=== PATIENT | female | born 1995 | race Two or more races ===

== ENCOUNTER 2022-05-09 14:28 | Emergency (ER) | payer MEDICAID, SELFPAY ==
[2022-05-09 15:10] VITALS: PULSE 70; RESP 18; TEMP 36.6; O2SAT 100; BMI 44.8
--- NOTE | 2022-05-09 15:12 | ED_ITS ---
HPI - General Adult General Chief complaint: Abdominal Pain <APRIL Li - Last Filed: 05/09/22 19:44> Stated complaint: discolor in eyes <APRIL Li Last Filed: 05/09/22 19:44> Time Seen by Provider: 05/09/22 16:15 <APRIL Li - Last Filed: 05/09/22 19:44> Source: patient <Matildades Marshall JUAN DANIEL Renae - Last Filed: 05/09/22 16:50> Mode of arrival: ambulatory <Matilda Renae CNP - Last Filed: 05/09/22 16:50> Limitations: no limitations <Matilda Renae CNP - Last Filed: 05/09/22 16:50> History of Present Illness HPI narrative: Patient is a 26-year-old female who presents emergency department for evaluation. She states that 2 days ago she had nausea vomiting and abdominal pain. The nausea and vomiting subsided after that day. Earlier today she had some epigastric pain but this has since resolved. One day ago when she awoke, after nausea and vomiting, she noticed blood to the whites of both eyes. Her family felt as though her eyes appear yellow and they were concerned as her grandmother has liver disease. Therefore she presented to emergency department today for evaluation. denies fevers, chills, persistent nausea or vomiting, current abdominal pain, chest pain, shortness of breath, constipation, diarrhea, dysuria, urinary frequency. Denies possibility of . Denies any vision changes, eye pain, discharge from the eyes, trauma to the eys or URI symptoms <Matilda Renae CNP - Last Filed: 05/09/22 16:50> Related Data Allergies/adverse reactions: Allergies Allergy/AdvReac Type Severity Reaction Status Date / Time No Known Allergies Allergy Verified 05/09/22 15:11 <APRIL Li Last Filed: 05/09/22 19:44> Review of Systems Review of Systems: Constitutional : No Weight loss, No Fever, No Chills ENT/Mouth :? No sore throat, No Rhinorrhea Eyes: No Swelling, positive redness to bilateral eyes. No vision changes. Cardiovascular : No Chest Pain, No SOB, No Edema Respiratory : No Cough, No Sputum, No Wheezing Gastrointestinal : No current Nausea, no current Vomiting, no Diarrhea, no current abdominal pain, No Hematochezia, No Melena Genitourinary : No Dysuria, No Urinary Frequency, No Hematuria, No Urgency? Musculoskeletal : No joint pain, No Myalgias, No Joint Swelling Skin : No Skin Lesions, No rash Neuro : No Weakness, No Numbness, No Dizziness, No Headache Psych : No Anxiety/Panic, No Depression Heme/Lymph: No Bruising, No Lymphadenopathy Endocrine : No Polyuria, No Polydipsia <Matilda Renae CNP - Last Filed: 05/09/22 16:50> Yes all other systems are reviewed and are negative <Matilda Renae CNP - Last Filed: 05/09/22 16:50> [facility] Past Medical History Attestation statement: The following information was validated with the patient. <Matilda Renae CNP - Last Filed: 05/09/22 16:50> Source: old records reviewed <Matilda Renae CNP - Last Filed: 05/09/22 16:50> Social History Social History: Social History Advance Directives: No Advance Directives Information Provided: No <APRIL Li - Last Filed: 05/09/22 19:44> Physical Exam ED Vital Signs: Vital Signs - 24 hr 05/09/22 15:10 05/09/22 16:16 Temperature 97.9 F 97.5 F Pulse Rate 70 74 Respiratory Rate 18 18 Blood Pressure 109/52 L Pulse Oximetry 100 99 Oxygen Delivery Method Room Air Room Air BMI result Body Mass Index 44.8 <APRIL Li - Last Filed: 05/09/22 19:44> Vital Signs - 24 hr 05/09/22 15:10 05/09/22 16:16 Temperature 97.9 F 97.5 F Pulse Rate 70 74 Respiratory Rate 18 18 Blood Pressure 109/52 L Pulse Oximetry 100 99 Oxygen Delivery Method Room Air Room Air BMI result Body Mass Index 44.8 <Matilda Renae CNP - Last Filed: 05/09/22 16:50> Appearance: Alert.?Oriented to person, place and time. No acute distress.?Normal affect. Eyes: Pupils equal, round and reactive to light.? EOMI. Bilateral subconjunctival hemorrhage. no scleral icterus ENT: Pharynx normal.?? Neck: Normal inspection.? Neck supple.?? CVS: Heart sounds normal. Normal heart rate and rhythm.? Pulses normal.?? Respiratory: No respiratory distress.? Lung sounds clear to auscultation bilaterally?? Abdomen: Soft and non-tender. Normoactive bowel sounds. Skin: Skin warm and dry.? Normal skin color.? no jaundice Extremities: No lower extremity edema.? Neuro: Moves all extremities spontaneously. Sensation intact bilaterally. No focal neuro deficits. Ambulates with normal steady gait. <Matilda Renae CNP - Last Filed: 05/09/22 16:50> Course Course Course Narrative: MARI; 26-year-old presents to ED for multiple episodes of abdominal pain and vomiting then after vomiting so far started some redness in her. She thinks her eyes are yellow. Physical exam shows bilateral subconjunctival hemorrhage. Physical exam eyes are not obviously yellow. Skin negative for jaundince. labs ordered. <APRIL Li - Last Filed: 05/09/22 19:44> Medical Decision Making Medical Decision Making MDM Narrative: patient is a 26-year-old female with no reported past medical history presenting to emergency department for evaluation of abdominal concerns in addition to atraumatic eye concerns as noted in HPI. Physical examination reveals a subconjunctival hemorrhage bilaterally, most likely secondary to recent vomiting, not consistent with conjunctivitis, scleral icterus or jaundice of the skin despite family concerns. Abdominal examination is benign, no tenderness, no rigidity, no guarding. Does not appear consistent with hepatic or biliary etiology; Low suspicion for hepatitis, Acute liver failure, obstructive biliary stone, acute cholecystitis. Cholelithiasis may be likely, however no indication to obtain imaging at this time. Currently pain-free, without nausea or vomiting. Reviewed labs obtained from E; no leukocytosis, no anemia, coag studies are normal, CMP is overall unremarkable, lipase within normal limits. Urinalysis without evidence of infection, urine test is negative. reassurance provided, advised subconjunctival hemorrhage would resolve on its own, if eyes are seemingly dry she may use artificial tears available [id number]. Currently without abdominal complaints, advised she may return to emergency department for re-evaluation if symptoms return, furthermore she may follow-up with primary care provider if these symptoms persist. She verbalized understanding. She is stable for discharge. <Matilda Renae CNP - Last Filed: 05/09/22 16:50> Differential Diagnosis Differential Diagnoses: The differential diagnosis associated with the presentation includes ( As noted above) <Matilda Renae CNP - Last Filed: 05/09/22 16:50> Lab Data MDM Lab Attestation statement: I reviewed the patient's lab results. <Matilda Renae CNP - Last Filed: 05/09/22 16:50> Result Diagrams: 05/09/22 15:54 05/09/22 15:55 <APRIL Li - Last Filed: 05/09/22 19:44> Labs: Lab Results 05/09/22 05/09/22 05/09/22 Range/Units 15:54 15:54 15:55 WBC 5.3 (4.8-10.8) X10*3/uL RBC 5.03 (4.20-5.50) X10*6/uL Hgb 13.6 (12.0-16.0) g/dl Hct 42.4 (37.0-47.0) % MCV 84.3 (80.0-98.0) fL MCH 27.0 (27.0-33.0) pg MCHC 32.1 (31.0-35.0) g/dl RDW 13.2 (11.0-16.0) % Plt Count 281 (160-400) X10*3/uL MPV 10.2 (9.4-12.3) fL Immature Gran % (Auto) 0.0 (0.0-0.4) % Neut % (Auto) 51.2 (45-73) % Lymph % (Auto) 36.5 (20-40) % [place] % (Auto) 9.8 (2-11) % Eos % (Auto) 2.3 (0-4) % Baso % (Auto) 0.2 (0-2) % Lymph # (Auto) 1.9 (1.2-4.9) X10*3/uL [place] # (Auto) 0.5 (0.1-1.2) X10*3/uL Eos # (Auto) 0.1 (0.0-0.4) X10*3/uL Baso # (Auto) 0.0 (0.0-0.2) X10*3/uL Abs Immat Gran (auto) 0.00 (0.00-0.03) X10*3/uL Absolute Neuts (auto) 2.7 (2.0-8.3) x10*3/uL Absolute Nucleated RBC 0.000 (0.0-0.012) X10*3/uL Nucleated RBC % (auto) 0.0 (0.0-0.2) /100WBC PT 11.3 (10.0-13.1) SEC INR 1.0 (0.9-1.1) APTT 32.6 (26.0-36.4) SEC Sodium 141 (135-145) mmol/L Potassium 3.7 (3.3-5.1) mmol/L Chloride 106 (96-108) mmol/L Carbon Dioxide 26 (22-29) mmol/L Anion Gap 13 (12-20) BUN 8 L (9-16) mg/dL Creatinine 0.74 (0.5-1.4) mg/dL Estim Creat Clear Calc 133.1 Estimated GFR > 60 Random Glucose 80 (60-115) mg/dL Calcium 8.7 (8.4-10.2) mg/dL Total Bilirubin 0.2 (0.0-1.0) mg/dL AST 28 (5-31) U/L ALT 35 H (0-31) U/L Alkaline Phosphatase 90 (39-117) U/L Total Protein 7.2 (6.5-8.0) g/dL Albumin 4.0 (3.5-5.0) g/dL Lipase 17 (8-78) U/L Beta HCG, Quant < 2 mIU/mL Urine Color Urine Appearance Urine pH (5.0-9.0) Ur Specific [place] (1.005-1.025) Urine Protein (Neg-Trace) mg/dL Urine Glucose (UA) (Negative) mg/dL Urine Ketones (Negative) mg/dL Urine Blood (Negative) Urine Nitrite (Negative) Ur Leukocyte Esterase (Negative) Urine RBC (0-2) /HPF Urine WBC (0-5) /HPF Ur Squamous Epith Cells (0-2) /HPF Urine Bacteria (None Seen) Hyaline Casts (0-2) /LPF Urine Test (NEGATIVE) 05/09/22 05/09/22 Range/Units 16:06 16:06 WBC (4.8-10.8) X10*3/uL RBC (4.20-5.50) X10*6/uL Hgb (12.0-16.0) g/dl Hct (37.0-47.0) % MCV (80.0-98.0) fL MCH (27.0-33.0) pg MCHC (31.0-35.0) g/dl RDW (11.0-16.0) % Plt Count (160-400) X10*3/uL MPV (9.4-12.3) fL Immature Gran % (Auto) (0.0-0.4) % Neut % (Auto) (45-73) % Lymph % (Auto) (20-40) % [place] % (Auto) (2-11) % Eos % (Auto) (0-4) % Baso % (Auto) (0-2) % Lymph # (Auto) (1.2-4.9) X10*3/uL [place] # (Auto) (0.1-1.2) X10*3/uL Eos # (Auto) (0.0-0.4) X10*3/uL Baso # (Auto) (0.0-0.2) X10*3/uL Abs Immat Gran (auto) (0.00-0.03) X10*3/uL Absolute Neuts (auto) (2.0-8.3) x10*3/uL Absolute Nucleated RBC (0.0-0.012) X10*3/uL Nucleated RBC % (auto) (0.0-0.2) /100WBC PT (10.0-13.1) SEC INR (0.9-1.1) APTT (26.0-36.4) SEC Sodium (135-145) mmol/L Potassium (3.3-5.1) mmol/L Chloride (96-108) mmol/L Carbon Dioxide (22-29) mmol/L Anion Gap (12-20) BUN (9-16) mg/dL Creatinine (0.5-1.4) mg/dL Estim Creat Clear Calc Estimated GFR Random Glucose (60-115) mg/dL Calcium (8.4-10.2) mg/dL Total Bilirubin (0.0-1.0) mg/dL AST (5-31) U/L ALT (0-31) U/L Alkaline Phosphatase (39-117) U/L Total Protein (6.5-8.0) g/dL Albumin (3.5-5.0) g/dL Lipase (8-78) U/L Beta HCG, Quant mIU/mL Urine Color Yellow Urine Appearance Clear Urine pH 6.0 (5.0-9.0) Ur Specific [place] 1.025 (1.005-1.025) Urine Protein Trace (Neg-Trace) mg/dL Urine Glucose (UA) Negative (Negative) mg/dL Urine Ketones Trace (Negative) mg/dL Urine Blood Trace H (Negative) Urine Nitrite Negative (Negative) Ur Leukocyte Esterase Negative (Negative) Urine RBC 11-20 H (0-2) /HPF Urine WBC 0-5 (0-5) /HPF Ur Squamous Epith Cells 3-5 (0-2) /HPF Urine Bacteria Trace (None Seen) Hyaline Casts 0-2 (0-2) /LPF Urine Test NEGATIVE (NEGATIVE) <APRIL Li - Last Filed: 05/09/22 19:44> Lab Results 05/09/22 05/09/22 05/09/22 Range/Units 15:54 15:54 15:55 WBC 5.3 (4.8-10.8) X10*3/uL RBC 5.03 (4.20-5.50) X10*6/uL Hgb 13.6 (12.0-16.0) g/dl Hct 42.4 (37.0-47.0) % MCV 84.3 (80.0-98.0) fL MCH 27.0 (27.0-33.0) pg MCHC 32.1 (31.0-35.0) g/dl RDW 13.2 (11.0-16.0) % Plt Count 281 (160-400) X10*3/uL MPV 10.2 (9.4-12.3) fL Immature Gran % (Auto) 0.0 (0.0-0.4) % Neut % (Auto) 51.2 (45-73) % Lymph % (Auto) 36.5 (20-40) % [place] % (Auto) 9.8 (2-11) % Eos % (Auto) 2.3 (0-4) % Baso % (Auto) 0.2 (0-2) % Lymph # (Auto) 1.9 (1.2-4.9) X10*3/uL [place] # (Auto) 0.5 (0.1-1.2) X10*3/uL Eos # (Auto) 0.1 (0.0-0.4) X10*3/uL Baso # (Auto) 0.0 (0.0-0.2) X10*3/uL Abs Immat Gran (auto) 0.00 (0.00-0.03) X10*3/uL Absolute Neuts (auto) 2.7 (2.0-8.3) x10*3/uL Absolute Nucleated RBC 0.000 (0.0-0.012) X10*3/uL Nucleated RBC % (auto) 0.0 (0.0-0.2) /100WBC PT 11.3 (10.0-13.1) SEC INR 1.0 (0.9-1.1) APTT 32.6 (26.0-36.4) SEC Sodium 141 (135-145) mmol/L Potassium 3.7 (3.3-5.1) mmol/L Chloride 106 (96-108) mmol/L Carbon Dioxide 26 (22-29) mmol/L Anion Gap 13 (12-20) BUN 8 L (9-16) mg/dL Creatinine 0.74 (0.5-1.4) mg/dL Estim Creat Clear Calc 133.1 Estimated GFR > 60 Random Glucose 80 (60-115) mg/dL Calcium 8.7 (8.4-10.2) mg/dL Total Bilirubin 0.2 (0.0-1.0) mg/dL AST 28 (5-31) U/L ALT 35 H (0-31) U/L Alkaline Phosphatase 90 (39-117) U/L Total Protein 7.2 (6.5-8.0) g/dL Albumin 4.0 (3.5-5.0) g/dL Lipase 17 (8-78) U/L Beta HCG, Quant < 2 mIU/mL Urine Color Urine Appearance Urine pH (5.0-9.0) Ur Specific [place] (1.005-1.025) Urine Protein (Neg-Trace) mg/dL Urine Glucose (UA) (Negative) mg/dL Urine Ketones (Negative) mg/dL Urine Blood (Negative) Urine Nitrite (Negative) Ur Leukocyte Esterase (Negative) Urine RBC (0-2) /HPF Urine WBC (0-5) /HPF Ur Squamous Epith Cells (0-2) /HPF Urine Bacteria (None Seen) Hyaline Casts (0-2) /LPF Urine Test (NEGATIVE) 05/09/22 05/09/22 Range/Units 16:06 16:06 WBC (4.8-10.8) X10*3/uL RBC (4.20-5.50) X10*6/uL Hgb (12.0-16.0) g/dl Hct (37.0-47.0) % MCV (80.0-98.0) fL MCH (27.0-33.0) pg MCHC (31.0-35.0) g/dl RDW (11.0-16.0) % Plt Count (160-400) X10*3/uL MPV (9.4-12.3) fL Immature Gran % (Auto) (0.0-0.4) % Neut % (Auto) (45-73) % Lymph % (Auto) (20-40) % [place] % (Auto) (2-11) % Eos % (Auto) (0-4) % Baso % (Auto) (0-2) % Lymph # (Auto) (1.2-4.9) X10*3/uL [place] # (Auto) (0.1-1.2) X10*3/uL Eos # (Auto) (0.0-0.4) X10*3/uL Baso # (Auto) (0.0-0.2) X10*3/uL Abs Immat Gran (auto) (0.00-0.03) X10*3/uL Absolute Neuts (auto) (2.0-8.3) x10*3/uL Absolute Nucleated RBC (0.0-0.012) X10*3/uL Nucleated RBC % (auto) (0.0-0.2) /100WBC PT (10.0-13.1) SEC INR (0.9-1.1) APTT (26.0-36.4) SEC Sodium (135-145) mmol/L Potassium (3.3-5.1) mmol/L Chloride (96-108) mmol/L Carbon Dioxide (22-29) mmol/L Anion Gap (12-20) BUN (9-16) mg/dL Creatinine (0.5-1.4) mg/dL Estim Creat Clear Calc Estimated GFR Random Glucose (60-115) mg/dL Calcium (8.4-10.2) mg/dL Total Bilirubin (0.0-1.0) mg/dL AST (5-31) U/L ALT (0-31) U/L Alkaline Phosphatase (39-117) U/L Total Protein (6.5-8.0) g/dL Albumin (3.5-5.0) g/dL Lipase (8-78) U/L Beta HCG, Quant mIU/mL Urine Color Yellow Urine Appearance Clear Urine pH 6.0 (5.0-9.0) Ur Specific [place] 1.025 (1.005-1.025) Urine Protein Trace (Neg-Trace) mg/dL Urine Glucose (UA) Negative (Negative) mg/dL Urine Ketones Trace (Negative) mg/dL Urine Blood Trace H (Negative) Urine Nitrite Negative (Negative) Ur Leukocyte Esterase Negative (Negative) Urine RBC 11-20 H (0-2) /HPF Urine WBC 0-5 (0-5) /HPF Ur Squamous Epith Cells 3-5 (0-2) /HPF Urine Bacteria Trace (None Seen) Hyaline Casts 0-2 (0-2) /LPF Urine Test NEGATIVE (NEGATIVE) <Matilda Renae CNP - Last Filed: 05/09/22 16:50> Tests considered The following testing was considered but not selected: I considered abdominal ultrasound for evaluation of cholelithiasis, however abdominal examination is benign, currently symptom-free, no indication for emergent ultrasound, therefore was deferred. <Matilda Renae CNP - Last Filed: 05/09/22 16:50> Discharge Plan Discharge Clinical Impression: Subconjunctival hemorrhage of both eyes, Abdominal pain <APRIL Li - Last Filed: 05/09/22 19:44> Patient Disposition: Home, Self-Care <APRIL Li - Last Filed: 05/09/22 19:44> Instructions: Subconjunctival Hemorrhage (ED), Abdominal Pain (ED) <APRIL Li - Last Filed: 05/09/22 19:44> Additional Instructions: as we discussed, the redness in your eyes will resolve on its own. You may use artificial tears if your eyes feel dry. This should be re-evaluated if you develop pain, vision changes, drainage from the eye, or yellowing of the whites of your eyes. At the time of evaluation your abdominal pain had improved. As we discussed, if you continue to have episodes of abdominal pain with associated nausea and vomiting, you should discuss this with your primary care provider at your appointment. You may return back to emergency department any new or worsening symptoms or concerns. <APRIL Li - Last Filed: 05/09/22 19:44> Referrals: Physician,Unknown J [Physician] - <APRIL Li - Last Filed: 05/09/22 19:44> Interventions: ED Discharge Assessment Last Done: 05/09/22 17:47 <APRIL Li - Last Filed: 05/09/22 19:44> Discharge Date/Time: 05/09/22 17:51 <APRIL Li - Last Filed: 05/09/22 19:44>
[2022-05-09 16:00] LABS: MANUAL DIFF FLAG NO
[2022-05-09 16:01] LABS: Basophils Percent Auto 0.2 % (0-2); Eosinophils Absolute Auto 0.1 X10*3/uL (0.0-0.4); Eosinophils Percent Auto 2.3 % (0-4); Hematocrit 42.4 % (37.0-47.0); Hemoglobin 13.6 g/dl (12.0-16.0); Lymphocytes Absolute Auto 1.9 X10*3/uL (1.2-4.9); Lymphocytes Percent Auto 36.5 % (20-40); Mean Corpuscular HGB Conc 32.1 g/dl (31.0-35.0); Mean Corpuscular Volume 84.3 fL (80.0-98.0); Mean Platelet Volume 10.2 fL (9.4-12.3); Monocytes Absolute Auto 0.5 X10*3/uL (0.1-1.2); Monocytes Percent Auto 9.8 % (2-11); Neutrophils Absolute Auto 2.7 x10*3/uL (2.0-8.3); Neutrophils Percent Auto 51.2 % (45-73); Platelet Count 281 X10*3/uL (160-400); Red Blood Count 5.03 X10*6/uL (4.20-5.50); Red Cell Distribution Width 13.2 % (11.0-16.0); White Blood Count 5.3 X10*3/uL (4.8-10.8)
[2022-05-09 16:11] LABS: Prothrombin Time 11.3 SEC (10.0-13.1)
[2022-05-09 16:14] LABS: Partial Thromboplastin Time 32.6 SEC (26.0-36.4)
[2022-05-09 16:16] VITALS: BP 109/52; PULSE 74; RESP 18; TEMP 36.4; O2SAT 99
--- NOTE | 2022-05-09 16:17 | MHC.EDTECH ---
this pct assumed care of patient at this time ,patient vitals sign taken ,patient mom at bedside .
[2022-05-09 16:20] LABS: Appearance Urine Clear; Color Urine Yellow; Glucose Urine UA Negative (Negative); Leukocyte Esterase Urine Negative (Negative); Nitrite Urine Negative (Negative); Specific Gravity - Urine 1.025 (1.005-1.025); UMIC TRIGGER UACC YES; Urine Blood Trace (Negative); Urine Ketones Trace mg/dL (Negative); Urine Protein Trace mg/dL (Neg-Trace)
[2022-05-09 16:21] LABS: UPreg QC Valid YES; Urine Pregnancy NEGATIVE (NEGATIVE)
[2022-05-09 16:24] LABS: Alanine Aminotransferase 35 U/L (0-31); Alkaline Phosphatase 90 U/L (39-117); Anion Gap 13 (12-20); Aspartate Amino Transferase 28 U/L (5-31); Bilirubin Total 0.2 mg/dL (0.0-1.0); Blood Urea Nitrogen 8 mg/dL (9-16); Calcium 8.7 mg/dL (8.4-10.2); Carbon Dioxide 26 mmol/L (22-29); Chloride 106 mmol/L (96-108); Creatinine Clr Calc Pharmacy 133.1; Estimated Glomerular Filt Rate > 60; Glucose Random 80 mg/dL (60-115); HCG Quantitative < 2 mIU/mL; Lipase 17 U/L (8-78); Potassium 3.7 mmol/L (3.3-5.1); Sodium 141 mmol/L (135-145); Total Protein 7.2 g/dL (6.5-8.0)
[2022-05-09 16:25] LABS: Bacteria Urine Trace (None Seen); Hyaline Casts Urine 0-2 /LPF (0-2); WBC Urine 0-5 /HPF (0-5)
== END 2022-05-09 17:51 | disposition home or self-care (01) ==
PROVIDERS: Physician Assistant; Emergency Provider Emergency Medicine Emergency Medical Services
DX: H11.33 Conjunctival hemorrhage, bilateral (principal); R10.9 Unspecified abdominal pain
CPT/HCPCS: 36415; 80053; 81001; 81025; 83690; 84702; 85025; 85610; 85730; 99283

== ENCOUNTER 2022-06-24 08:53 | Outpatient (REF) | payer MEDICAID, SELFPAY ==
--- NOTE | ~2022-06-24 | US_ITS ---
EXAMINATION: US RETROPERITONEAL LIMITED (RENAL ONLY) CLINICAL INFORMATION: History of hydronephrosis. COMPARISON: None TECHNIQUE: Real-time imaging of the kidneys. FINDINGS: RIGHT KIDNEY: 14.1 x 5.5 x 5.7 cm (SAG x AP x TRV). The kidney is normal in size, contour, and echogenicity. Renal cortical thickness is normal. No calculi or focal parenchymal lesions. No hydronephrosis. LEFT KIDNEY: 9.2 x 3.4 x 3.9 cm (SAG x AP x TRV). The left kidney is significantly smaller than right, and there is significant cortical thinning present. No calculi or focal parenchymal lesions. No hydronephrosis. US/US renal BI IMPRESSION: 1. Normal-appearing right kidney. 2. Small left kidney with cortical thinning.
== END 2022-06-24 08:54 | disposition home or self-care (01) ==
LOC: HO.US 08:53
PROVIDERS: Visit Provider Registered Nurse
DX: Z87.448 Personal history of other diseases of urinary system (principal)
CPT/HCPCS: 76775